=== PATIENT | female | born 2000 | race Hispanic/Latino ===

== ENCOUNTER 2022-05-27 15:47 | Emergency (ER) | payer BC ==
[2022-05-27] MEDS ORDERED: NA CHLORIDE 0.9% 1,000 ML ONE (17:19)
[2022-05-27 17:25] LABS: Urine Blood Negative (Negative); Urine Glucose Negative (Negative); Urine Protein Negative (Negative); Urine pH 6.5 (5.0-7.0)
[2022-05-27 17:30] LABS: Hematocrit 40.9 % (36.0-45.0); Lymphocytes % 20.5 % (15.3-44.8); MCV 88.2 fL (80-100); MPV 7.5 fL (7.6-11.3); RBC Red Blood Cell Count 4.64 M/uL (3.86-4.86)
[2022-05-27 17:55] LABS: Albumin 3.9 g/dL (3.4-5.0); Bilirubin Total 0.3 mg/dL (0.2-1.0); Potassium 3.3 mmol/L (3.5-5.1); Protein, Total 7.7 g/dL (6.4-8.2)
--- NOTE | 2022-05-27 18:41 | RAD REPORT ---
EXAM DESCRIPTION: CTAbdomen Pelvis W Contrast - 05/27/2022 6:35 pm CLINICAL HISTORY: Abdominal pain. LLQ abdominal pain COMPARISON: No comparisons TECHNIQUE: Biphasic CT imaging of the abdomen and pelvis was performed with 100 ml non-ionic IV cont rast. All CT scans are performed using dose optimization technique as appropriate and may include automated exposure control or mA/KV adjustment according to patient size. FINDINGS: The lung bases are clear. The liver, spleen, pancreas, adrenal glands and kidneys are within normal limits. No bowel obstruction, free air, free fluid or abscess. The appendix is normal size but contains an a ppendicolith. No evidence of significant lymphadenopathy. Trace pelvic free fluid is seen. No suspicious bony findings. IMPRESSION: No acute intra-abdominal or pelvic finding.
[2022-05-27] MEDS ORDERED: ONDANSETRON 4 MG/2 ML VIAL ONE (18:51)
[2022-05-27] MEDS ORDERED: DICYCLOMINE HCL 20 MG/2 ML AMP IM ONE (18:51)
[2022-05-27] MEDS ORDERED: POTASSIUM 25 MEQ EFFERV TAB ONE (19:18)
--- NOTE | 2022-05-27 19:33 | ER ---
Nurse's Notes [facility] Name: Niesha Cortez Age: 21 yrs Sex: Female : 2000 Arrival Date: 05/27/2022 Time: 15:49 Bed 18 Private MD: Diagnosis: Lower abdominal pain, unspecified Presentation: 05/27 16:04 Chief complaint: Patient states: I have had three bowel movements today - black stool. ld1 Pt reports previous constipation issues. Reporting abdominal pain. Coronavirus screen: At this time, the client does not indicate any symptoms associated with coronavirus-19. Ebola Screen: No symptoms or risks identified at this time. Initial Sepsis Screen: Does the patient meet any 2 criteria? No. Patient's initial sepsis screen is negative. Does the patient have a suspected source of infection? No. Patient's initial sepsis screen is negative. Risk Assessment: Do you want to hurt yourself or someone else? Patient reports no desire to harm self or others. Onset of symptoms was May 27, 2022. 16:04 Method Of Arrival: Ambulatory ld1 16:04 Acuity: AGNES 3 ld1 Triage Assessment: 16:07 General: Appears in no apparent distress. comfortable, Behavior is calm, cooperative, ld1 appropriate for age. Pain: Complains of pain in abdomen Pain does not radiate. Pain currently is 8 out of 10 on a pain scale. Quality of pain is described as throbbing. EENT: No signs and/or symptoms were reported regarding the EENT system. Neuro: Level of Consciousness is awake, alert, obeys commands, Oriented to person, place, time, situation. Cardiovascular: Capillary refill < 3 seconds Patient's skin is warm and dry. Respiratory: Airway is patent Respiratory effort is even, unlabored. GI: Abdomen is flat, non-distended, Reports lower abdominal pain, upper abdominal pain, constipation. 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 - Social history:: Smoking status: Patient denies any tobacco usage or history of. Patient/guardian denies using alcohol. Screenin:25 Abuse screen: Denies threats or abuse. Denies injuries from another. Nutritional mckinney screening: No deficits noted. Tuberculosis screening: No symptoms or risk factors identified. Fall Risk None identified. Assessment: 17:15 Reassessment: pt BP dropped after IV insertion, moved to bed 18, Dr. Josue and Jesus iw Page at bedside , BP coming up to 89 systolic. 18:25 General: Appears in no apparent distress. Behavior is calm, cooperative. Pain: mckinney Complains of pain in abdomen. GI: Bowel sounds present X 4 quads. Abd is soft and non tender X 4 quads. Reports dark stool. 19:58 Reassessment: No changes from previously documented assessment. Patient and/or family ll3 updated on plan of care and expected duration. Pain level reassessed. Patient is alert, oriented x 3, equal unlabored respirations, skin warm/dry/pink. Vital Signs: 16:04 BP 112 / 77; Pulse 92; Resp 18; Temp 99.1(O); Pulse Ox 100% on R/A; Weight 51.71 kg; ld1 Height 5 ft. 2 in. (157.48 cm); Pain 7/10; 18:39 BP 107 / 69; Pulse 73; Resp 18; Pulse Ox 98% ; mckinney 19:58 BP 110 / 70; Pulse 72; Resp 17; Pulse Ox 99% on R/A; ll3 16:04 Body Mass Index 20.85 (51.71 kg, 157.48 cm) ld1 ED Course: 15:49 Patient arrived in ED. rg4 16:06 Jesus Hernandez PA is PHCP. cp 16:06 Kodak Josue DO is Attending Physician. cp 16:07 Triage completed. ld1 16:07 Arm band placed on right wrist. EKG completed in triage. Results shown to MD. EKG ld1 completed in triage. Results shown to MD. 18:25 Silva Del Cid, RN is Primary Nurse. mckinney 18:25 Patient has correct armband on for positive identification. Bed in low position. mckinney 18:25 No provider procedures requiring assistance completed. Inserted saline lock: 20 gauge mckinney in right antecubital area, using aseptic technique. 18:37 CT Abd/Pelvis - IV Contrast Only In Process Unspecified. EDMS 19:24 Primary Nurse role handed off by Silva Del Cid RN mw2 19:58 Boston Sanders, GRACIELA is Primary Nurse. ll3 19:58 IV discontinued, intact, bleeding controlled, No redness/swelling at site. Pressure ll3 dressing applied. Administered Medications: 18:48 Drug: Bentyl (dicyclomine) 20 mg Route: IM; Site: right gluteus; cmkinney 18:48 Follow up: Response: No adverse reaction mckinney 18:48 Drug: Zofran (Ondansetron) 4 mg Route: IVP; Site: right antecubital; mckinney 18:49 Follow up: Response: No adverse reaction mckinney 19:18 Drug: Potassium Effervescent Tablet 50 mEq Route: PO; ll3 19:53 Follow up: Response: No adverse reaction ll3 Medication: 18:25 VIS not applicable for this client. mckinney Outcome: 19:32 Discharge ordered by MD. cp 19:58 Discharged to home ambulatory, with family. ll3 19:58 Condition: stable 19:58 Discharge instructions given to patient, family, Instructed on discharge instructions, follow up and referral plans. medication usage, Demonstrated understanding of instructions, follow-up care, medications, Prescriptions given X 1. 20:00 Patient left the ED. ll3 Signatures: Dispatcher [employer] Yuliet Stanley, RN Jesus Lowry PA PA cp Garcia, Rubi rg4 Harshil Dickey mw2 Haydee Mccormick RN RN 1 Boston Sanders, RN RN 3 Silva Del Cid RN RN mckinney
--- NOTE | 2022-05-27 19:33 | EDPHYS ---
Physician Documentation [facility] Name: Niesha Cortez Age: 21 yrs Sex: Female : 2000 Arrival Date: 05/27/2022 Time: 15:49 Bed 18 Private MD: ED Physician Kodak Josue HPI: 05/27 17:05 This 21 yrs old Female presents to ER via Ambulatory with complaints of cp Abdominal Pain, Black/Tarry Stools. 17:05 The patient presents with abdominal pain in the lower abdomen. Onset: The cp symptoms/episode began/occurred today. Associated signs and symptoms: Pertinent positives: diarrhea, black stools. 17:05 The symptoms are described as constant. cp 17:05 Patient reports taking Pepto Bismol yesterday for constipation. Noticed black colored cp stool with 3 loose bowel movements today. 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 - Social history:: Smoking status: Patient denies any tobacco usage or history of. Patient/guardian denies using alcohol. ROS: 17:10 Constitutional: Negative for chills, fever, poor PO intake. cp 17:10 Eyes: Negative for injury, pain, redness, and discharge. cp 17:10 ENT: Negative for drainage from ear(s), ear pain, sore throat, difficulty swallowing, difficulty handling secretions. 17:10 Cardiovascular: Negative for chest pain, edema, palpitations. 17:10 Respiratory: Negative for cough, shortness of breath, wheezing. 17:10 Abdomen/GI: Positive for abdominal pain, nausea, diarrhea, black/tarry stool, Negative for vomiting, rectal bleeding. 17:10 Back: Negative for radiated pain. 17:10 Neuro: Negative for altered mental status. 17:10 All other systems are negative. Exam: 17:11 Constitutional: The patient appears in no acute distress, alert, awake, non-toxic, well cp developed, well nourished, uncomfortable. 17:11 Head/Face: Normocephalic, atraumatic. cp 17:11 Eyes: Periorbital structures: appear normal, Conjunctiva: normal, no exudate, no injection, Sclera: no appreciated abnormality, Lids and lashes: appear normal, bilaterally. 17:11 ENT: External ear(s): are unremarkable, Nose: is normal, Mouth: Lips: moist, Oral mucosa: pink and intact, moist, Posterior pharynx: Airway: no evidence of obstruction, patent. 17:11 Neck: ROM/movement: is normal, is supple, without pain, no range of motions limitations. 17:11 Chest/axilla: Inspection: normal. 17:11 Cardiovascular: Rate: normal, Rhythm: regular. 17:11 Respiratory: the patient does not display signs of respiratory distress, Respirations: normal, no use of accessory muscles, no retractions, labored breathing, is not present, Breath sounds: are clear throughout, no decreased breath sounds, no stridor, no wheezing. 17:11 Abdomen/GI: Inspection: abdomen appears normal, Bowel sounds: active, all quadrants, Palpation: soft, in all quadrants, moderate abdominal tenderness, in the right lower quadrant and left lower quadrant, rebound tenderness, is not appreciated, involuntary guarding, is not appreciated. 17:11 Back: CVA tenderness, is absent. 17:11 Skin: cellulitis, is not appreciated, no rash present. 17:11 Neuro: Orientation: to person, place \\T\\ time. Mentation: is normal, Cerebellar function: is grossly normal, Motor: moves all fours, strength is normal, Sensation: is normal. 17:20 : Rectal exam: Guaiac testing: results were negative for occult blood. cp Vital Signs: 16:04 BP 112 / 77; Pulse 92; Resp 18; Temp 99.1(O); Pulse Ox 100% on R/A; Weight 51.71 kg; ld1 Height 5 ft. 2 in. (157.48 cm); Pain 7/10; 18:39 BP 107 / 69; Pulse 73; Resp 18; Pulse Ox 98% ; mckinney 19:58 BP 110 / 70; Pulse 72; Resp 17; Pulse Ox 99% on R/A; ll3 16:04 Body Mass Index 20.85 (51.71 kg, 157.48 cm) ld1 MDM: 16:53 Patient medically screened. 19:30 Data reviewed: vital signs, nurses notes, lab test result(s), radiologic studies, CT cp scan. 19:30 Counseling: I had a detailed discussion with the patient and/or guardian regarding: the cp historical points, exam findings, and any diagnostic results supporting the discharge/admit diagnosis, lab results, radiology results, to return to the emergency department if symptoms worsen or persist or if there are any questions or concerns that arise at home. Response to treatment: the patient's symptoms have markedly improved after treatment. Special discussion: Based on the patient's Hx, exam, and Dx evaluation, there is no indication for emergent surgery or inpatient Tx. It is understood by the patient/guardian that if the Sx's persist or worsen they need to return immediately for re-evaluation. 05/27 17:00 Order name: CBC with Diff; Complete Time: 17:46 05/27 17:46 Interpretation: Normal except: MPV 7.5. 05/27 17:00 Order name: CMP; Complete Time: 18:13 05/27 18:13 Interpretation: Normal except: K 3.3; A/G 1.0; GLOB 3.8. 05/27 17:00 Order name: Lipase; Complete Time: 18:13 05/27 18:13 Interpretation: Reviewed. 05/27 17:00 Order name: Strep; Complete Time: 18:43 05/27 17:00 Order name: Influenza Screen (a \\T\\ B); Complete Time: 18:43 05/27 17:00 Order name: CT Abd/Pelvis - IV Contrast Only; Complete Time: 18:43 05/27 18:43 Interpretation: Report reviewed. 05/27 17:00 Order name: COVID-19 SARS RT PCR (Document "Date of Onset" if Symptomatic); Complete cp Time: 19:07 05/27 17:25 Order name: Urine Dipstick-Ancillary; Complete Time: 17:46 [facility] 05/27 17:33 Order name: Urine --Ancillary (enter results) 05/27 18:27 Order name: Throat Culture [facility] 05/27 17:00 Order name: IV Saline Lock; Complete Time: 18:39 05/27 17:00 Order name: Labs collected and sent; Complete Time: 18:39 05/27 17:00 Order name: Urine Dipstick-Ancillary (obtain specimen); Complete Time: 17:25 cp 05/27 17:00 Order name: Urine Test (obtain specimen); Complete Time: 17:25 cp 05/27 18:43 Order name: PO challenge; Complete Time: 19:32 cp Administered Medications: 18:48 Drug: Bentyl (dicyclomine) 20 mg Route: IM; Site: right gluteus; mckinney 18:48 Follow up: Response: No adverse reaction mckinney 18:48 Drug: Zofran (Ondansetron) 4 mg Route: IVP; Site: right antecubital; mckinney 18:49 Follow up: Response: No adverse reaction mckinney 19:18 Drug: Potassium Effervescent Tablet 50 mEq Route: PO; ll3 19:53 Follow up: Response: No adverse reaction ll3 Disposition Summary: 05/27/22 19:32 Discharge Ordered Location: Home cp Problem: new cp Symptoms: have improved cp Condition: Stable cp Diagnosis - Lower abdominal pain, unspecified cp Followup: cp - With: Private Physician - When: 1 - 2 days - Reason: Worsening of condition Discharge Instructions: - Discharge Summary Sheet cp - Abdominal Pain, Adult cp - Constipation, Adult cp Forms: - Medication Reconciliation Form cp - Thank You Letter cp - Antibiotic Education cp - Prescription Opioid Use cp Prescriptions: - dicyclomine 20 mg Oral Tablet - take 1 tablet by ORAL route 4 times per day; 20 tablet; Refills: 0, Product cp Selection Permitted Addendum: 05/29/2022 20:11 Co-signature as Attending Physician, Kodak Josue DO I was immediately available on-site m s3 in the Emergency Department for consultation in the care of the patient.. Signatures: Dispatcher [employer] EDMS Jesus Hernandez PA PA cp Kodak Josue DO DO ms3 Haydee Mccormick RN RN [email or web address] Boston Sanders RN RN ll3 Duyen-StagerSilva RN RN mckinney Corrections: (The following items were deleted from the chart) 05/27 18:13 18:13 Normal except: K 3.3. cp cp 05/28 19:25 05/27 17:05 Associated signs and symptoms: Pertinent positives: diarrhea, cp cp
[2022-05-27 20:34] VITALS: TEMP 99.1
[2022-05-27 20:38] VITALS: BP 110/70; O2SAT 99
== END 2022-05-27 20:00 | disposition home or self-care (01) ==
LOC: ER 15:47
DX: R10.30 Lower abdominal pain, unspecified (principal)
CPT/HCPCS: 87070; 85025; 36415; 81025; 87081; 81003; 83690; 80053; 87804 ×2; 74177; U0003; Q9967; J0500; J7030; J2405